=== PATIENT | female | born 1955 | race Caucasian/White ===

== ENCOUNTER 2018-06-23 22:08 | Observation (INO) | payer OTHER ==
[2018-06-23] MEDS ORDERED: NS 1,000 ML IV ONE (22:22)
--- NOTE | 2018-06-23 22:24 | EDPHY ---
H & P Stated Complaint: N/V, syncope, hit head, now A+O Time Seen by Provider: 06/23/18 22:17 HPI/ROS: HPI CHIEF COMPLAINT: Syncope with head strike. HISTORY OF PRESENT ILLNESS: 62-year-old female, history of bipolar depression, presents emergency room by EMS after she had a syncopal episode at a local restaurant. Patient states that she ate a late lunch and then went out to dinner with her son at a restaurant late this evening. She states that she was full from her late lunch did not have anything further to eat but did have a glass and half of wine as well as THC earlier. She states she felt very lightheaded and nauseated. She felt like she was going to pass out and tried to get to a lower chair from high top chair. Family reports that she made it to her lower chair but then had a syncopal episode and fell over with head strike. The patient arrives to the emergency room and is complaining pressure in the front of her head, complaining of a headache and neck pain. Also complains of lightheadedness. She denies any chest pain Patient denies any shortness of breath. Denies palpitations. Denies feeling heart race during this event. Past Medical History: Significant medical history for bipolar disorder, depression. Past Surgical History: No recent surgical history Social History: Resides in [place]. Alcohol this evening and THC. Family History: Noncontributory ROS REVIEW OF SYSTEMS: 10 Systems were reviewed and negative with the exception of the elements mentioned in the history of present illness. Exam Constitutional nontoxic no acute distress triage nursing summary reviewed, vital signs reviewed, awake/alert. Vital signs stable. Eyes normal conjunctivae and sclera, EOMI, PERRLA. HENT head and neck are atraumatic on exam. moist mucus membranes, no epistaxis , neck supple/ no meningismus, no raccoon eyes. Respiratory clear to auscultation bilaterally, normal breath sounds, no respiratory distress, no wheezing. Cardiovascular rate normal, regular rhythm, no murmur, no edema, distal pulses normal. Gastrointestinal soft, non-tender, no rebound, no guarding, normal bowel sounds, no distension, no pulsatile mass. Genitourinary no CVA tenderness. Musculoskeletal no midline vertebral tenderness, full range of motion, no calf swelling, no tenderness of extremities, no meningismus, good pulses, neurovascularly intact. Skin pink, warm, & dry, no rash, skin atraumatic. Neurologic awake, alert and oriented x 3, AAOx3, moves all 4 extremities equally, motor intact, sensory intact, CN II-XII intact, normal cerebellar, normal vision, normal speech. Psychiatric normal mood/affect. Heme/Lymph/Immune no lymphadenopathy. Differential Diagnosis: Includes but is not limited to in a particular order: Vasovagal syncope, orthostatic syncope, cardiac arrhythmia, dehydration, electrolyte disturbance, alcohol and THC caused syncope, ACS, seizure, intracranial bleed, CVA Medical Decision Making: Plan for this patient phototypesetting equipment monitor, IV establishment IV fluid bolus, check orthostatics, EKG, troponin, chest x-ray, CT scan head without contrast and CT cervical spine without contrast for trauma. Re-evaluation: EKG interpretation by me on record in [facility] system. Impression time of EKG 2224, sinus rhythm rate of 73 T-wave abnormality V1 V2. No ST elevation no ST depression. Normal EKG to compare this to. CT scan head without contrast negative for acute traumatic injury called to me by Dr. Fatima CT cervical spine without contrast negative for acute traumatic injury called to me by Dr. Fatima Reason for CT scans trauma with fall with head strike, syncope. Chest x-ray reviewed one-view atelectasis both lung bases, alveolar infiltrates reported by Radiology. However the patient does not have a cough, she is not hypoxic, she does not complain of any shortness of breath or fever recent illness. 12:13 a.m. patient re-evaluated she still states she feels lightheaded does not feel well. Plan for tonight will be admission to the hospital overnight for observation, cardiac monitoring, further evaluation for syncope. The patient agrees for this. Additionally she reports she had a bout of urinary incontinence. She has never had this before. Here in emergency room the patient's syncope workup was rather unremarkable including a normal head scan and cervical spine scan, chest x-ray shows atelectasis and MV or infiltrates of unclear significance, troponin negative, EKG does not show acute ischemia. QT intervals noted in to be borderline prolonged. T-wave abnormalities V1 V2. Otherwise her electrolytes are appropriate. Plan for admission the hospital service overnight for observation and syncope evaluation. Patient is 62 has never had cardiovascular evaluation I spoke with the hospitalist service Dr. Nieves Who accepts Admission. Source: Patient, Family, EMS - Personal History Current Tetanus/Diphtheria Vaccine: Yes Current Tetanus Diphtheria and Acellular Pertussis (TDAP): Yes - Medical/Surgical History Hx Asthma: No Hx Chronic Respiratory Disease: No Hx Diabetes: No Hx Cardiac Disease: No Hx Renal Disease: No Hx Cirrhosis: No Hx Alcoholism: No Hx HIV/AIDS: No Hx Splenectomy or Spleen Trauma: No Other PMH: depression, bipolar, giardia, - Social History Smoking Status: Never smoked Constitutional: Initial Vital Signs Temperature (C) 36.3 C 06/23/18 22:17 Heart Rate 76 06/23/18 22:17 Respiratory Rate 18 06/23/18 22:17 Blood Pressure 121/68 H 06/23/18 22:17 O2 Sat (%) 97 06/23/18 22:17 O2 Delivery Mode Room Air Allergies/Adverse Reactions: iodine Allergy (Verified 06/24/18 09:52) Hives tetracycline Allergy (Verified 06/24/18 09:52) Hives Home Medications: Medication Instructions Recorded Citalopram Hydrobromide [celeXA 10 10 mg PO DAILY 06/23/18 MG] Gabapentin [Neurontin 400 MG (*)] 800 mg PO HS 06/23/18 LORazepam [Ativan (*)] 1 mg PO HS 06/23/18 buPROPion XL [Wellbutrin 150mg XL] 150 mg PO DAILY 06/23/18 Divalproex ER [Depakote ER 500 MG 500 mg PO HS 06/24/18 (*)] Doxapram 10mg Cap 10 mg PO DAILY 06/24/18 Ibuprofen [Motrin (*)] 200 mg PO DAILY PRN 06/24/18 Medical Decision Making - Data Points Laboratory Results: Laboratory Results 06/23/18 22:10 06/23/18 22:10 Medications Given: Discontinued Medications Doxepin HCl (Sinequan) 10 mg PO HS ONE Stop: 06/24/18 02:46 Last Admin: 06/24/18 02:45 Dose: 10 mg Enoxaparin Sodium (Lovenox) 40 mg SC DAILY MORALES Stop: 12/21/18 08:59 Last Admin: 06/24/18 09:38 Dose: 40 mg Gabapentin (Neurontin) 800 mg PO ONCE ONE Stop: 06/24/18 02:46 Last Admin: 06/24/18 02:46 Dose: 800 mg Sodium Chloride (Ns) 1,000 mls @ 0 mls/hr IV ONCE ONE PRN Reason: Wide Open Stop: 06/23/18 22:23 Last Admin: 06/23/18 22:26 Dose: 1,000 mls Lorazepam (Ativan) 1 mg PO ONCE ONE Stop: 06/24/18 02:46 Last Admin: 06/24/18 02:46 Dose: 1 mg Point of Care Test Results: Chemistry 06/23/18 22:21 POC Troponin I 0.00 ng/mL ng/mL (0.00-0.08) Departure - Departure Disposition: [facility] Inpatient Acute Clinical Impression: Syncope Qualifiers: Syncope type: vasovagal syncope Qualified Code(s): R55 - Syncope and collapse Condition: Good
[2018-06-23 22:30] LABS: PLATELET COUNT 301 10^3/uL (150-400)
[2018-06-24] MEDS ORDERED: ONDANSETRON DISINTEGRATING 4 MG TAB PO PRN (00:20)
[2018-06-24] MEDS ORDERED: ACETAMINOPHEN 325 MG TAB PO PRN (00:20)
[2018-06-24] MEDS ORDERED: ONDANSETRON 4 MG/2 ML VIAL IVP PRN (00:20)
[2018-06-24] MEDS ORDERED: LORazepam 0.5 MG TAB PO ONE ×2 (00:30→02:45)
[2018-06-24] MEDS ORDERED: DOXEPIN HCL 10 MG CAP PO ONE ×2 (00:30→02:45)
[2018-06-24] MEDS ORDERED: GABAPENTIN 400 MG CAP PO ONE ×2 (00:31→02:45)
--- NOTE | 2018-06-24 00:38 | PDGENHP ---
History and Physical - Chief Complaint Syncope - History of Present Illness 62 yo F w/ BPD presents after syncopal episode. The patient had syncopal episode while out to dinner. She was moving from a stool to a chair when she passed out. She does not recall the event but she recalls regaining consciousness shortly after. She denies CP, SOB, palpitations. No seizure-like activity or post-ictal confusion was noted at the scene. The patient denies prior similar events. She did have a glass of wine with dinner and smoked some marijuana prior. Case discussed with ED physician Dr. Khanna; records reviewed and summarized above. History Information - Allergies/Home Medication List Allergies/Adverse Reactions: iodine Allergy (Verified 06/23/18 22:20) tetracycline Allergy (Verified 06/23/18 22:20) Home Medications: Citalopram 06/23/18 [Last Taken Unknown] Doxapram HCl 06/23/18 [Last Taken Unknown] Gabapentin 06/23/18 [Last Taken Unknown] Lorazepam 06/23/18 [Last Taken Unknown] buPROPion 06/23/18 [Last Taken Unknown] I have personally reviewed and updated: family history, medical history - Past Medical History Additional medical history: Bipolar disorder - Surgical History Reports: no pertinent surgical hx - Family History Additional family history: Denies family hx of epilepsy - Social History Smoking Status: Never smoked Review of Systems Review of Systems: ROS: 10pt was reviewed & negative except for what was stated in HPI & below Physical Exam Physical Exam: Temp Pulse Resp BP Pulse Ox 36.3 C 86 18 128/74 H 99 06/23/18 22:17 06/23/18 23:49 06/23/18 23:49 06/23/18 23:49 06/23/18 23:49 Constitutional: no apparent distress, not in pain Eyes: PERRL, EOMI Ears, Nose, Mouth, Throat: moist mucous membranes, no oral mucosal ulcers Cardiovascular: regular rate and rhythym, no murmur, rub, or gallop Respiratory: no respiratory distress, clear to auscultation Gastrointestinal: normoactive bowel sounds, soft, non-tender abdomen Skin: warm, normal color Musculoskeletal: full muscle strength, no muscle tenderness Neurologic: AAOx3, CN II-XII Intact Psychiatric: interacting appropriately, not anxious Lab Data & Imaging Review 06/23/18 22:10 06/23/18 22:10 WBC 9.11 10^3/uL (3.80-9.50) 06/23/18 22:10 RBC 4.58 10^6/uL (4.18-5.33) 06/23/18 22:10 Hgb 13.9 g/dL (12.6-16.3) 06/23/18 22:10 Hct 41.1 % (38.0-47.0) 06/23/18 22:10 MCV 89.7 fL (81.5-99.8) 06/23/18 22:10 MCH 30.3 pg (27.9-34.1) 06/23/18 22:10 MCHC 33.8 g/dL (32.4-36.7) 06/23/18 22:10 RDW 12.4 % (11.5-15.2) 06/23/18 22:10 Plt Count 301 10^3/uL (150-400) 06/23/18 22:10 MPV 11.1 fL (8.7-11.7) 06/23/18 22:10 Neut % (Auto) 39.3 % (39.3-74.2) 06/23/18 22:10 Lymph % (Auto) 49.8 % (15.0-45.0) H 06/23/18 22:10 Hand % (Auto) 6.8 % (4.5-13.0) 06/23/18 22:10 Eos % (Auto) 2.5 % (0.6-7.6) 06/23/18 22:10 Baso % (Auto) 1.3 % (0.3-1.7) 06/23/18 22:10 Nucleat RBC Rel Count 0.0 % (0.0-0.2) 06/23/18 22:10 Absolute Neuts (auto) 3.57 10^3/uL (1.70-6.50) 06/23/18 22:10 Absolute Lymphs (auto) 4.54 10^3/uL (1.00-3.00) H 06/23/18 22:10 Absolute Monos (auto) 0.62 10^3/uL (0.30-0.80) 06/23/18 22:10 Absolute Eos (auto) 0.23 10^3/uL (0.03-0.40) 06/23/18 22:10 Absolute Basos (auto) 0.12 10^3/uL (0.02-0.10) H 06/23/18 22:10 Absolute Nucleated RBC 0.00 10^3/uL (0-0.01) 06/23/18 22:10 Immature Gran % 0.3 % (0.0-1.1) 06/23/18 22:10 Immature Gran # 0.03 10^3/uL (0.00-0.10) 06/23/18 22:10 Sodium 137 mEq/L (135-145) 06/23/18 22:10 Potassium 3.7 mEq/L (3.5-5.2) 06/23/18 22:10 Chloride 105 mEq/L (97-110) 06/23/18 22:10 Carbon Dioxide 19 mEq/l (22-31) L 06/23/18 22:10 Anion Gap 13 mEq/L (6-14) 06/23/18 22:10 BUN 16 mg/dL (7-23) 06/23/18 22:10 Creatinine 1.2 mg/dL (0.6-1.0) H 06/23/18 22:10 Estimated GFR 45 06/23/18 22:10 Glucose 115 mg/dL (70-100) H 06/23/18 22:10 Calcium 9.8 mg/dL (8.5-10.4) 06/23/18 22:10 Magnesium 2.0 mg/dL (1.6-2.3) 06/23/18 22:10 POC Troponin I 0.00 ng/mL (0.00-0.08) 06/23/18 22:21 Ethyl Alcohol 33 mg/dL (0-10) H 06/23/18 22:10 Imaging Review: Imaging Impressions Cervical Spine CT 06/23/18 22:19 Impression: 1. No acute fracture about the cervical spine. 2. Degenerative disk disease most prominent at C4-C5 and at C6-C7 with associated spinal and neuroforaminal stenoses. Findings discussed with David Patricio MD at 23:14 hour, 06/23/2018. Chest X-Ray 06/23/18 22:19 Impression: 1. Alveolar infiltrates at both lung bases suggestive of dependent edema versus pneumonia. 2. Poor inspiration with compressive changes at the lung bases. Head CT 06/23/18 22:19 Impression: 1. No significant intracranial abnormality seen. 2. Dental disease with lucency around the roots of the right second molar on the alveolar ridge If symptoms worsen, additional imaging may be necessary. Findings discussed with David Patricio MD at 23:14 hour, 06/23/2018. Visualized and Interpreted EKG results: Yes EKG Interpretation: Positive for: normal sinsus rhythm, other (Incomplete RBBB, QTc 488) Assessment & Plan Assessment: 62 yo F w/ BPD presents after syncopal event. Plan: 1. Syncope - Unclear etiology; could be vasovagal event in the setting of MJ and ETOH use. She has no prior cardiovascular or seizure history. ECG ( personally reviewed/interpreted) with incomplete RBBB and prolonged QTc. CXR with mild vascular prominence of unclear significance. - Admit for observation - Monitor on telemetry - Noting mildly abnormal ECG and abnormal CXR, will check TTE 2. BPD - Continue home medications pending reconciliation Diet - Regular Code - Full Ppx - LMWH Dispo - Admit under observation status
[2018-06-24 04:53] LABS: PLATELET COUNT 233 10^3/uL (150-400)
[2018-06-24] MEDS ORDERED: ENOXAPARIN 40 MG/0.4 ML SYR SC SCH (09:00)
[2018-06-24 11:44] VITALS: BP 100/53
--- NOTE | 2018-06-24 12:39 | ECHO ---
[email or web address] [address] [address] Main: [phone] Fax: Transthoracic Echocardiogram Name: JULITA JONES MR#: [id number] Study Date: 06/24/2018 Study Time: 10:01 AM Date of : 1955 Age: 62 year(s) Height: 154.9 cm (61 in.) Weight: 61.24 kg (135 lb.) BSA: 1.6 m2 Gender: Female Examination: Echo Indication: Cardiac: syncope Image Quality: Fair Contrast: Requested by: Jeronimo Hollins BP: 100 mmHg/54 mmHg Heart Rate: Rhythm: Indication: Cardiac: syncope Procedure Staff Recording Engineer: Miri Ni RDCS Reading Physician: Tatiana Lock MD Requesting Provider: Conclusions: Normal size left ventricle. No LV hypertrophy. Normal global systolic LV function. The ejection fraction is estimated to be 65-70 %. No regional wall motion abnormality. Normal diastolic LV function. Normal size right ventricle. Normal RV function. Trivial to mild mitral regurgitation. Trivial anterior pericardial effusion vs. fat pad.. There is no previous echocardiogram for comparison. Measurements: Chambers Valvular Assessment AV/MV Valvular Assessment TV/PV Normal Normal Normal Name Value Range Name Value Range Name Value Range Ao Candy (MM): 2.5 cm (2.2 cm-3.7 AV Vmax: 1.38 m/s (1 m/s-1.7 cm) m/s) IVSd (2D): 0.7 cm (0.6 cm-1.1 AV meanP mmHg ( - ) cm) MV E Vmax: 0.85 m/s ( - ) LVDd (2D): 3.9 cm (3.9 cm-5.3 MV A Vmax: 0.61 m/s ( - ) cm) MV E/A: 1.39 ( - ) LVDs (2D): 2.5 cm (2.1 cm-4 cm) LVPWd (2D): 0.8 cm ( - ) LVEF (BP): 76 % (>=55 %) EF Range: 65-70 % Continued Measurements: Chambers Valvular Assessment AV/MV Patient: JULITA JONES Study Date: 06/24/2018 Page 1 of 2 10:01 AM Name Value Name Value LADs Lon.7 cm MV E' Septal: 0.09 m/s LA Area: 14.3 cm2 MV E/E' Septal: 9.80 LA Volume: 35 ml MV E/E' Lateral: 9.40 LA Volume Index: 21.9 ml/m2 Additional Vessels Name Value Ao Ascendin.0 cm Findings: Left Ventricle: Normal size left ventricle. No LV hypertrophy. Normal global systolic LV function. The ejection fraction is estimated to be 65-70 %. No regional wall motion abnormality. Normal diastolic LV function. Right Ventricle: Normal size right ventricle. Normal RV function. Left Atrium: The left atrium is normal in size. Right Atrium: The right atrium is normal in size. Mitral Valve: The mitral valve is normal in appearance and function. Trivial to mild mitral regurgitation. Aortic Valve: The aortic valve is normal in appearance and function. Tricuspid Valve: The tricuspid valve is normal in appearance and function. Pulmonic Valve: Pulmonary valve not well visualized. Aorta: The aorta is normal. Pericardium: Trivial anterior pericardial effusion vs. fat pad.. (No Signature Object) Patient: JULITA JONES Study Date: 06/24/2018 Page 2 of 2 10:01 AM [id number]
--- NOTE | 2018-06-24 13:04 | PDDCSUM ---
Discharge Summary Discharge Summary: Date of Admission: 06/23/2018 Date of Discharge: 06/24/2018 Studies: 1. CT head 2. CT cervical spine 3. TTE Discharge Diagnoses: 1. Syncopal episode, likely vasovagal 2. Incomplete RBBB 3. Bipolar disorder Brief Hospital Course: 62 yo F with bipolar disorder presents after syncopal episode. Had prodrome consistent with vasovagal event. No seizure activity. No significant trauma and imaging negative for such. TTE normal. Had incomplete RBBB and slightly prolonged QTc on admit ECG but telemetry completely normal. She was monitored overnight with no recurrence of symptoms or passing out. She was ambulating without symptoms. I did give her some recommendations on preventing further episodes and advice on preventing trauma if she feels an episode coming on. Medications: Please refer to EMR. No changes. Follow Up Plan: 1. To see PCP in 1-2 weeks Physical Exam: Vitals and telemetry reviewed. Alert and oriented, rrr without m/ r/g, lungs clear, abdomen soft, no leg edema or rashes.
--- NOTE | 2018-06-24 13:39 | ASMTCMCOM ---
CM Note CM Note Notes: Pts case discussed in tx rounds. Pt is a 62 y/o female admitted for syncope after having etoh and marijuana. Pt is being d/c'd today. Pt has a hx of depression and bipolar. CM met w/ pt to see if she needed any resources. Pt reports that she has a psychiatrist that she sees. Pt reports that she knows the signs to look for. Pt does not have any d/c needs. CM available for changes. Plan: Independent Date Signed: 06/24/2018 01:38 PM Electronically Signed By:ROSE Keys
--- NOTE | 2018-06-24 13:40 | ASMTLACE ---
NIMESHE Length of stay for Answers: 1 day current admission Acuity / Level of Answers: No Care: Did the patient have an inpatient admission? # of Emergency department Answers: 1-2 visits in the last 6 months Social determinants Answers: Mental health diagnosis (anxiety, depression, pers onality disorders, etc.) Score: 5 Date Signed: 06/24/2018 01:39 PM Electronically Signed By:ROSE Keys
--- NOTE | 2018-06-24 18:11 | CPEKG ---
Test Reason : OPEN Blood Pressure : / mmHG Vent. Rate : 073 BPM Atrial Rate : 073 BPM P-R Int : 150 ms QRS Dur : 106 ms QT Int : 442 ms P-R-T Axes : 047 019 039 degrees QTc Int : 488 ms Sinus rhythm Low voltage, precordial leads Borderline prolonged QT interval Confirmed by Germaine Jeronimo ([id number]) on 06/24/2018 6:11:16 PM Referred By: David Patricio Confirmed By:Germaine Jeronimo
[2018-06-24] MEDS ORDERED: DIVALPROEX ER 500 MG TAB PO SCH (21:00)
[2018-06-24] MEDS ORDERED: GABAPENTIN 400 MG CAP PO SCH (21:00)
[2018-06-24] MEDS ORDERED: LORazepam 1 MG TAB PO SCH (21:00)
[2018-06-25] MEDS ORDERED: [UNRECOGNIZED DRUG - OTHER] PO SCH (09:00)
[2018-06-25] MEDS ORDERED: CITALOPRAM 20 MG TAB PO SCH (09:00)
[2018-06-25] MEDS ORDERED: buPROPion XL 150 MG TAB PO SCH (09:00)
== END 2018-06-24 14:42 | disposition home or self-care (01) ==
LOC: EDUNIT# → F2W 06-24 02:04
PROVIDERS: ADMIT Student in an Organized Health Care Education/Training Program; ATTEND Internal Medicine
DX: R55 Syncope and collapse (principal); W07.XXXA Fall from chair, initial encounter; Y92.511 Restaurant or cafe as the place of occurrence of the external cause; I45.19 Other right bundle-branch block; F31.9 Bipolar disorder, unspecified; N39.498 Other specified urinary incontinence
CPT/HCPCS: 70450; 71045; 72125; 93005; 93306; 96360; 96372; 99285; G0378; 84484-ER; G0480; J1650

== ENCOUNTER → 2018-09-23 | Outpatient (CLI) | payer OTHER | LOC: BMCIMAGING 08:41 | PROVIDERS: ATTEND Family Medicine | DX: R10.9 Unspecified abdominal pain (principal); K76.0 Fatty (change of) liver, not elsewhere classified ==

== ENCOUNTER → 2018-10-23 | Outpatient (CLI) | payer OTHER | LOC: FIMAGING 13:01 ==

== ENCOUNTER → 2018-11-20 | Outpatient (CLI) | payer OTHER | LOC: FIMAGING 11:09 ==